=== PATIENT | female | born 1980 | race Two or more races ===

== ENCOUNTER 2025-05-08 16:25 | Emergency (ER) | payer MEDICAID, SELFPAY ==
[2025-05-08 17:04] VITALS: BP 126/74; PULSE 90; RESP 18; TEMP 37.4; O2SAT 99; BMI 35.2
--- NOTE | 2025-05-08 17:13 | PD.EDADULT ---
ED General RME/HPI General Chief complaint: General Adult/Misc Complain Stated complaint: VAGINAL INFECTION X 3 DAYS Time Seen by Provider: 05/08/25 16:28 Arrival date/time: 05/08/25 16:25 44-year-old female presents to the emergency department today for complaints of vaginal itching and burning as well as dysuria and discharge. Patient reports no chance of no chance of STD Limitations: no limitations Related Data Previous Rx's ?Medication ?Instructions ?Recorded cyclobenzaprine 10 mg tablet 10 mg PO Q8H PRN muscle spasm #20 11/29/18 tabs ibuprofen 600 mg tablet 600 mg PO Q6H #60 tabs 11/29/18 doxycycline hyclate 100 mg capsule 100 mg PO BID 7 days #14 caps 05/08/25 fluconazole 150 mg tablet 150 mg PO Q3D 2 doses #2 tabs 05/08/25 ibuprofen 600 mg tablet 600 mg PO Q6H #30 tabs 05/08/25 metronidazole 500 mg tablet 500 mg PO BID 7 days #14 tabs 05/08/25 Allergies Allergy/AdvReac Type Severity Reaction Status Date / Time No Known Allergies Allergy Verified 05/08/25 16:27 Review of Systems Review of Systems Systems Reviewed: All systems reviewed, normal except as documented Constitutional Constitutional: Reports system reviewed and no additional complaints, except as documented, Denies fever(s) and Denies headache(s) Eyes Eyes: Reports system reviewed and no additional complaints, except as documented and Denies blurry vision ENT Ears, Nose, Mouth, and Throat: Reports system reviewed and no additional complaints, except as documented, Denies headache(s), Denies nasal congestion and Denies nasal discharge Cardiovascular Cardiovascular: Reports system reviewed and no additional complaints, except as documented, Denies chest pain and Denies dyspnea Respiratory Respiratory: Reports system reviewed and no additional complaints, except as documented, Denies chest congestion, Denies cough and Denies dyspnea Gastrointestinal Gastrointestinal: Reports system reviewed and no additional complaints, except as documented and Denies abdominal pain Genitourinary Genitourinary: Reports system reviewed and no additional complaints, except as documented, Reports genital pruritis, Reports vaginal odor and Reports vaginal pruritus Integumentary/Breasts Skin/Breast: Reports system reviewed and no additional complaints, except as documented and Denies rash Neurologic Neurologic: Reports system reviewed and no additional complaints, except as documented, Reports as per HPI and Denies headache(s) Past Medical History Social History SMOKING STATUS: Never smoker ED Exam General Limitations: Present no limitations General appearance: Present alert and in no apparent distress Head Head exam: Present atraumatic, normocephalic and normal inspection Eye Eye exam: Present normal appearance, PERRL and EOMI; Absent conjunctival injection ENT ENT exam: Present normal exam, normal oropharynx and mucous membranes moist Neck Neck exam: Present normal inspection, full ROM and trachea midline Chest Chest inspection: Present normal inspection and symmetric chest wall rise Respiratory Respiratory exam: Present normal lung sounds bilaterally; Absent respiratory distress Cardiovascular Cardiovascular exam: Present regular rate, normal rhythm and normal heart sounds Abdominal Exam Abdominal exam: Present soft and normal bowel sounds; Absent distention, tenderness, guarding, rebound or rigidity Extremities Exam Extremities exam: Present normal inspection and full ROM Back Exam Back exam: Present normal inspection and full ROM Neurological Exam Neurological exam: Present alert, oriented X3, CN II-XII intact, normal gait and reflexes normal; Absent motor sensory deficit Psychiatric Psychiatric exam: Present normal affect and normal mood Skin Skin exam: Present warm, dry, intact and normal color; Absent rash Course Quality Measures none Orders Category Date Time Status Bedside Blood Glucose NOW Care 05/08/25 17:11 Completed Chlamydia/GC/TV - PCR Stat Lab 05/08/25 17:52 Stop Req Fluconazole [Diflucan] Med 05/08/25 17:10 Discontinued 150 mg PO X1 ONE Lidocaine 1% 20 ml [Xylocaine 1% 20 ML] Med 05/08/25 17:10 Discontinued 2.1 ml INFL X1 ONE cefTRIAXone [Rocephin] Med 05/08/25 17:10 Discontinued 1,000 mg IM X1 ONE Vital Signs Vital signs: Vital Signs Temperature 99.4 F 05/08/25 17:04 Pulse Rate 90 05/08/25 17:04 Respiratory Rate 18 05/08/25 17:04 Blood Pressure 126/74 05/08/25 17:04 Pulse Oximetry (%) 99 05/08/25 17:04 Oxygen Delivery Method Room Air 05/08/25 17:04 O2 saturation 99% room air within limits Discharge Plan Plan Patient Disposition: HOME (Self Care) Discharge Disposition comment: Stable Prescriptions/Referrals Prescriptions/Med Rec: New ibuprofen 600 mg tablet 600 mg PO Q6H Qty: 30 0RF metronidazole 500 mg tablet 500 mg PO BID 7 Days Qty: 14 0RF doxycycline hyclate 100 mg capsule 100 mg PO BID 7 Days Qty: 14 0RF fluconazole 150 mg tablet 150 mg PO Q3D Qty: 2 0RF No Action cyclobenzaprine 10 mg tablet 10 mg PO Q8H PRN (Reason: muscle spasm) Qty: 20 0RF ibuprofen 600 mg tablet 600 mg PO Q6H Qty: 60 0RF Problem List Clinical Impression: Vaginal itching, Vaginal discharge Patient/Caregiver Discharge Instructions Education Materials: Vaginal Infection Additional Instructions: Please follow up with your primary care doctor in the next 24-48hrs for any worsening symptoms return here immediately 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 Patient reports no chance of no chance of STD On exam patient well-appearing patient does not appear toxic no acute distress With female senior ui designer examined patient's vaginal region patient has vaginal discharge and foul odor I suspect patient may have bacterial vaginosis versus yeast infection patient was treated accordingly UA sent for GC chlamydia trichomoniasis as well as hCG and UA Explained to the patient that she needs to follow-up with PCP for full STD panel and further evaluation Patient discharged home in no distress to follow-up with primary care doctor in the next 24 to 48 hours and for any worsening symptoms to return to the ER immediately Clinical Information Provided by none Medical Records Reviewed None Meds/Rx Considered, not Ordered Describe details: Given Labs/Rad/Tests considered, not Ordered Describe details: Ordered Chronic Illness/Social Conditions which may negatively complicate care or outcome(s)-explain: None or not applicable EKG EKG not done Lab Interpretation Labs: see narrative above Imaging Imaging interpretation: none Medication Administration(s) Medication Administration History Discontinued Medications Ceftriaxone Sodium (Ceftriaxone Sod Inj 1,000 Mg Vial) 1,000 mg IM X1 ONE Stop: 05/08/25 17:11 Last Admin: 05/08/25 17:31 Dose: 1,000 mg Documented By: LASHA Fluconazole (Fluconazole 150 Mg Tablet) 150 mg PO X1 ONE Stop: 05/08/25 17:11 Last Admin: 05/08/25 17:31 Dose: 150 mg Documented By: LASHA Lidocaine HCl (Lidocaine Hcl 1% 20 Ml Vial) 2.1 ml INFL X1 ONE Stop: 05/08/25 17:11 Last Admin: 05/08/25 17:31 Dose: 2.1 ml Documented By: LASHA Given Diagnosis Differential diagnosis: UTI, STD, bacterial vaginosis Differential dx and/or dx ruled out: UTI, STD, bacterial vaginosis Dispositon Disposition: Discharge Home
[2025-05-08] MEDS: LIDOCAINE HCL 1% 20 ML VIAL 2.1 ML INFL (17:31)
[2025-05-08] MEDS: FLUCONAZOLE 150 MG TABLET PO (17:31)
[2025-05-08] MEDS: cefTRIAXone SOD INJ 1,000 MG VIAL 1000 MG IM (17:31)
[2025-05-09 15:03] LABS: Chlamydia trachomatis PCR Negative (Not Detect); Neisseria Gonorrhoeae DNA PCR Negative (Not Detect); Trichomonas Negative (Negative)
== END 2025-05-08 17:37 | disposition home or self-care (01) ==
LOC: SERX 17:19
PROVIDERS: Nurse Practitioner Primary Care; Emergency Provider Family Medicine
DX: N89.8 Other specified noninflammatory disorders of vagina (principal)
CPT/HCPCS: 81001; 81025; 87491; 87591; 87661; 96372; 99283; J0696; J3490; A9270